=== PATIENT | female | born 1945 | race Caucasian/White ===

== ENCOUNTER 2016-05-11 05:45 | Inpatient (IN) | payer OTHER ==
[2016-05-11] MEDS ORDERED: ROPI/epiNEPH/KETOROLAC JOINT COCKTAIL IU ONE (06:00)
[2016-05-11] MEDS ORDERED: ACETAMINOPHEN 325 MG TAB PO ONE (06:00)
[2016-05-11] MEDS ORDERED: DEXAMETHASONE 4 MG/ML VIAL IVP ONE (06:00)
[2016-05-11] MEDS ORDERED: CHLORHEXIDINE GLUC HIBICLENS 118 ML BTL TP ONE (06:00)
[2016-05-11] MEDS ORDERED: TRANEXAMIC ACID 3,000 MG in NS 50 ML IRR ONE (06:00)
[2016-05-11] MEDS ORDERED: FAMOTIDINE 20 MG TAB PO ONE (06:00)
[2016-05-11] MEDS ORDERED: LIDOCAINE 1% 5 ML SDV ID PRN (06:29)
[2016-05-11] MEDS ORDERED: LR 1,000 ML IV ONE (06:29)
[2016-05-11] MEDS ORDERED: ceFAZolin 2 GM/DEXTROSE 100 ML IV ONE (06:30)
[2016-05-11] MEDS ORDERED: SKIN ADHESIVE (DERMABOND) 1 EACH TP ONE ×2 (06:33→06:35)
[2016-05-11] MEDS ORDERED: TRANEXAMIC ACID 3,000 MG/50 ML BAG IRR ONE (06:33)
[2016-05-11] MEDS ORDERED: LIDOCAINE 1% 5 ML SDV ONE (06:33)
[2016-05-11] MEDS ORDERED: VANCOMYCIN 1 GM VIAL IV ONE (06:34)
[2016-05-11] MEDS ORDERED: MIDAZOLAM 2 MG/2 ML VIAL ONE (06:58)
[2016-05-11] MEDS ORDERED: PROPOFOL/EMULSION 500 MG/50 ML BOTTLE IV ONE (07:08)
[2016-05-11] MEDS ORDERED: ONDANSETRON 4 MG/2 ML VIAL ONE (07:15)
[2016-05-11] MEDS ORDERED: DEXAMETHASONE 4 MG/ML VIAL ONE (07:15)
[2016-05-11] MEDS ORDERED: fentaNYL 100 MCG/2 ML INJ ONE (07:56)
[2016-05-11] MEDS ORDERED: ROPIVACAINE HCL 150 MG/30 ML INJ ONE (08:27)
[2016-05-11] MEDS ORDERED: BISACODYL 10 MG SUPP PR PRN (08:31)
[2016-05-11] MEDS ORDERED: TEMAZEPAM 15 MG CAP PO PRN (08:31)
[2016-05-11] MEDS ORDERED: METOCLOPRAMIDE 10 MG/2 ML VIAL IVP PRN (08:31)
[2016-05-11] MEDS ORDERED: DIPHENOXYLATE/ATROPINE LOMOTIL 1 TAB PO PRN (08:31)
[2016-05-11] MEDS ORDERED: ONDANSETRON DISINTEGRATING 4 MG TAB PO PRN (08:31)
[2016-05-11] MEDS ORDERED: PHARMACY PAIN CONSULT 1 EA MISC PRN (08:31)
[2016-05-11] MEDS ORDERED: ONDANSETRON 4 MG/2 ML VIAL IVP PRN (08:31)
[2016-05-11] MEDS ORDERED: diphenhydrAMINE 25 MG CAP PO PRN (08:31)
[2016-05-11] MEDS ORDERED: PROMETHAZINE HCL 25 MG SUPPR PR PRN (08:31)
[2016-05-11] MEDS ORDERED: LACTULOSE 20 GM/30 ML UDCUP PO PRN (08:31)
[2016-05-11] MEDS ORDERED: POLYETHYLENE GLYCOL 3350 17 GM PKT PO PRN (08:31)
[2016-05-11] MEDS ORDERED: MAGNESIUM HYDROXIDE 30 ML UDCUP PO PRN (08:31)
[2016-05-11] MEDS ORDERED: PROMETHAZINE HCL 25 MG/ML INJ IVP PRN (08:31)
--- NOTE | 2016-05-11 08:31 | POSTOPPROG ---
Post Op Note Date of Operation: 05/11/16 Surgeon: Shazia Prasad Dental Office Assistant: issa prasad Anesthesiologist: dr. hunt Anesthesia: Spinal, Other (Specify) (adductor canal block) Pre-op Diagnosis: left knee OA Post-op Diagnosis: same Indication: left knee pain due to OA that failed conservative measures Procedure: L tKA Findings: severe knee OA Inf/Abcess present in the surg proc area at time of surgery?: No EBL: 50-100
[2016-05-11] MEDS ORDERED: NON-FORMULARY NEW DRUG (Albuterol [Proventil Inhaler Hfa (*)] 2 PUFFS) IH PRN (08:32)
[2016-05-11] MEDS ORDERED: NON-FORMULARY NEW DRUG (Omeprazole [Prilosec 20 Mg] 40 MG) PO SCH (09:00)
[2016-05-11] MEDS ORDERED: LR 1,000 ML IV SCH (09:00)
--- NOTE | 2016-05-11 09:28 | DX ---
Left Knee, Two Views History: Postop alignment check. Findings: A left knee TKA is present and is in excellent postoperative alignment. brittny overlie the knee. Impression: Excellent postoperative alignment.
[2016-05-11] MEDS ORDERED: ALBUTEROL 60 PUFFS/8 GM MDI IH PRN (09:37)
[2016-05-11] MEDS: ATORVASTATIN CALCIUM 20 MG TAB PO SCH (10:00)
[2016-05-11] MEDS: oxyCODONE IR 5 MG TAB PO PRN ×4 (10:06→21:38)
[2016-05-11] MEDS: PANTOPRAZOLE SODIUM 40 MG TAB PO SCH (10:06)
[2016-05-11] MEDS: CYCLOBENZAPRINE 10 MG TAB PO PRN (10:50)
[2016-05-11] MEDS: ACETAMINOPHEN 325 MG TAB PO SCH ×3 (11:36→23:34)
[2016-05-11] MEDS: SENNOSIDES/DOCUSATE SODIUM TAB PO SCH ×2 (11:36→20:47)
[2016-05-11] MEDS: ceFAZolin 2 GM in D5W 100 ML IV SCH ×2 (13:45→21:38)
[2016-05-11] MEDS ORDERED: ceFAZolin 2 GM/DEXTROSE 100 ML IV SCH (14:00)
[2016-05-11] MEDS: ASPIRIN 325 MG TAB PO SCH (20:47)
[2016-05-11] MEDS: FAMOTIDINE 20 MG TAB PO SCH (20:47)
--- NOTE | 2016-05-12 02:12 | GOP ---
[f rep st] OPERATIVE REPORT DATE OF OPERATION: 05/11/2016 SURGEON: Shelly Lima MD INSTALLER TECHNICIAN: KYLE Quijano. ANESTHESIA: Spinal. PREOPERATIVE DIAGNOSIS: Left knee osteoarthritis. POSTOPERATIVE DIAGNOSIS: Left knee osteoarthritis. PROCEDURE PERFORMED: Left total knee arthroplasty. FINDINGS: ESTIMATED BLOOD LOSS: 30 cc. INDICATIONS: This is a 70-year-old female with severe and progressive pain and deformity of the left knee unresponsive to conservative care. Risks and benefits of the surgical intervention were explai aleah in detail. DESCRIPTION OF PROCEDURE: The patient was brought to the operative room and placed on the table in t he supine position. Spinal anesthesia was induced without difficulty. A pneumatic tourniquet was ap plied about the left proximal thigh, and the leg was prepped and draped in a sterile fashion. The le g mijares was applied. After exsanguination by elevation the tourniquet was inflated to mm of mercur y. Incision was made anterior medial from the tibial tuberosity to a point cm proximal to the superior pole of the patella. Medial parapatellar arthrotomy was carried out from the superior pole of the pa tella and posteriorly in line with the fibers of the Type VMO. The medial collateral ligament was e levated and the infrapatellar fat pad was resected. The patella was everted and the articular surface was excised. A 52 mm patellar button was placed. T he distal femoral guide hole was drilled and the 60 degree alignment pema was placed. A 10 mm distal femoral cut was made without difficulty. Attention was turned to the tibia and a standard 9 mm cut based on the lateral tibial condyle was per formed. The tibial articular surface was excised without difficulty. Attention was turned back to the femur and a size 4 femoral cutting block was positioned. Anterior, posterior, and chamfer cuts were made, followed by the intercondylar box cut. The knee was extended and the remnants of the medial and lateral meniscus were excised. The posterio r capsule was injected with ropivacaine, epinephrine and Toradol. A size 4 MIS Mini-keel tibial tray was positioned. Trial reduction was then carried out. There was excellent range of motion, alignme nt, and stability using the 11 mm polyethylene. All trials were then removed. The joint was thoroughly irrigated and carefully dried. Two packages of cement and 2 grams of vancomycin were mixed in the vacuum mixer and placed on the fixation surface s of all surfaces of the components. The components were implanted and all excess cement was thoroug hly removed. The permanent 11 mm polyethylene was placed without difficulty. The tourniquet was deflated and all bleeders were coagulated. The wound was thoroughly irrigated and closed using interrupted sutures of 2-0 Vicryl for the joint capsule. The subcu was closed with 3-0 Vicryl and the skin with 4-0 Monocryl. Dermabond and Steri-Strips were applied followed by a compre ssive dressing. The patient was then moved from the operating room to the recovery room in good cond ition, having tolerated the procedure well. /[id number]/MODL
[2016-05-12] MEDS: ACETAMINOPHEN 325 MG TAB PO SCH (04:30)
[2016-05-12 04:58] LABS: HEMATOCRIT 34.8 % (38.0-47.0); HEMOGLOBIN 11.7 g/dL (12.6-16.3)
[2016-05-12] MEDS ORDERED: LEVOTHYROXINE 25 MCG TAB PO SCH (06:00)
[2016-05-12] MEDS ORDERED: LEVOTHYROXINE 200 MCG TAB PO SCH (06:00)
[2016-05-12 07:44] VITALS: RESP 16; TEMP 98.5
[2016-05-12] MEDS: SENNOSIDES/DOCUSATE SODIUM TAB PO SCH (08:12)
[2016-05-12] MEDS: oxyCODONE IR 5 MG TAB PO PRN (08:13)
[2016-05-12] MEDS: ASPIRIN 325 MG TAB PO SCH (08:14)
[2016-05-12] MEDS: PANTOPRAZOLE SODIUM 40 MG TAB PO SCH (08:14)
[2016-05-12] MEDS: ATORVASTATIN CALCIUM 20 MG TAB PO SCH (08:14)
[2016-05-12] MEDS: CYCLOBENZAPRINE 10 MG TAB PO PRN (08:14)
[2016-05-12] MEDS: FAMOTIDINE 20 MG TAB PO SCH (08:15)
--- NOTE | 2016-05-12 10:02 | SOAPPROG ---
SOAP Progress Note Assessment/Plan: Assessment: Elodia is doing well POD 1 s/p L TKA 1) pain management: doing well on oral pain meds. well controlled. 2) anemia: level expected initially postop, asymptomatic. continue to monitor 3) VTe ppx: aspirin 325mg daily, NIYA hose and SCDs. 4) D/c planning: patient may be d/c'd to home today. Plan: 05/12/16 10:01 Subjective: Elodia is doing well this morning, denies SOB, chest pain and N/V. Objective: Vital Signs Temp Pulse Resp BP Pulse Ox 36.9 C 80 16 112/72 96 05/12/16 07:43 05/12/16 07:43 05/12/16 07:43 05/12/16 07:43 05/12/16 07:43 Laboratory Results 05/12/16 04:43 05/11/16 05/12/16 05/13/16 05:59 05:59 05:59 Intake Total 2100 Output Total 1165 Balance 935 LLE: incision dressing is clean and dry, NVI, +pf/df ICD10 Worksheet Patient Problems: Problems Problem Status Diagnosed Primary localized osteoarthritis of left knee Acute
[2016-05-12 12:00] VITALS: BP 112/72; PULSE 83; O2SAT 93
--- NOTE | 2016-05-12 13:18 | GDS ---
[f rep st] DISCHARGE SUMMARY ADMISSION DIAGNOSIS: Left knee osteoarthritis. DISCHARGE DIAGNOSIS: Left knee osteoarthritis. PROCEDURE: Left total knee arthroplasty. VTE PROPHYLAXIS: Aspirin recommended for 3 weeks daily. BRIEF DESCRIPTION OF HOSPITAL STAY: Patient was admitted for an elective joint arthroplasty. The pa tient tolerated the procedure well and has passed physical therapy. The patient was given appropriat e antibiotic prophylaxis and venous thromboembolism prophylaxis. The patient's pain was well control led on oral pain medication, patient was holding down food, and had urinated. Decision was made to d ischarge the patient. The patient was given post-operative prescriptions pre-operatively. PLAN: Please follow up as scheduled at Dr. Lima's office at [facility] on 2016 at 10:00 a.m. /[id number]/MODL
== END 2016-05-12 10:47 | disposition home or self-care (01) | DRG 470 ==
LOC: F3N 05:45
PROVIDERS: ADMIT Orthopaedic Surgery; ATTEND Orthopaedic Surgery
PROC: 0SRD0J9 Replacement of Left Knee Joint with Synthetic Substitute, Cemented, Open Approach (ICD-10-PCS; principal; 2016-05-11 07:15)
DX: M17.12 Unilateral primary osteoarthritis, left knee (principal); E78.5 Hyperlipidemia, unspecified; E03.9 Hypothyroidism, unspecified
CPT/HCPCS: 97116-GP; 97161-GP; 97165-GO; 97530-GP; C1713; G8978-GP-CJ; G8979-GP-CI; G8980-GP-CI; G8987-GO-CI; G8988-GO-CI; G8989-GO-CI; J0171; J0690; J1100; J1885; J2250; J2405; J2704; J2795; J3010; J3370

== ENCOUNTER → 2016-06-26 | Outpatient (CLI) | payer OTHER | LOC: CIMAGING 08:55 | DX: Z12.31 Encounter for screening mammogram for malignant neoplasm of breast (principal) | CPT/HCPCS: G0202 ==

== ENCOUNTER → 2017-07-04 | Outpatient (CLI) | payer OTHER | LOC: CIMAGING 09:27 | PROVIDERS: ATTEND Family Medicine | DX: Z12.31 Encounter for screening mammogram for malignant neoplasm of breast (principal) ==

== ENCOUNTER → 2018-07-31 | Outpatient (CLI) | payer OTHER | LOC: CIMAGING 09:47 | PROVIDERS: ATTEND Family Medicine | DX: Z12.31 Encounter for screening mammogram for malignant neoplasm of breast (principal); R92.8 Other abnormal and inconclusive findings on diagnostic imaging of breast ==

== ENCOUNTER → 2018-08-19 | Outpatient (CLI) | payer OTHER | LOC: FIMAGING 13:27 | PROVIDERS: ATTEND Family Medicine | DX: R92.8 Other abnormal and inconclusive findings on diagnostic imaging of breast (principal) ==